=== PATIENT | female | born 1935 | race Two or more races ===

== ENCOUNTER 2018-08-10 04:41 | Emergency (ER) | payer OTHER ==
[~2018-08-10] VITALS: Ht 162.6 cm; Wt 68.0 kg
[~2018-08-10 04:41] MED LIST: AMLO5TAB13; ASPI81CH49; CLON0.1T; LISI-646; OMEPRAZOLE DR 20 MG CAPSULE; PRAV20TA3 PO
[2018-08-10 07:44] LABS: Basophils # (auto) 0.1 uL; Basophils % (auto) 0.7 % (0.0-2.0); Eosinophils # (auto) 0.1 uL; Eosinophils % (auto) 1.4 % (0.0-7.0); Hematocrit 43.9 % (36.0-46.0); Hemoglobin 14.6 g/dL (12.2-16.2); Lymphocytes # (auto) 0.9 uL; Lymphocytes % (auto) 11.8 % (10.0-50.0); Mean Corpuscular Hemoglobin 29.5 pg (28.0-32.0); Mean Corpuscular Hgb Conc. 33.3 g/dL (32.0-36.0); Mean Corpuscular Volume 88.7 fL (80.0-100.0); Monocytes # (auto) 0.6 uL; Monocytes % (auto) 7.5 % (0.0-12.0); Neutrophils # (auto) 5.8 uL; Neutrophils % (auto) 78.6 % (37.0-80.0); Nucleated Red Blood Cells % 0.1 %; Platelet Count (auto) 128 10^3/uL (140-450); Red Blood Cells 4.95 10^6/uL (4.0-5.20); White Blood Cell 7.4 10^3/uL (4.4-10.8)
[2018-08-10] MEDS ORDERED: SODIUM CHLORIDE 0.9% 1,000 ML IV ONE (07:48)
[2018-08-10] MEDS ORDERED: PROMETHAZINE HCL 25 MG/ML 1ML IV PRN (08:00)
[2018-08-10 08:13] LABS: Albumin 3.2 g/dL (3.4-5.0); Calcium 9.3 mg/dL (8.5-10.1); Potassium 3.9 mmol/L (3.5-5.1)
[2018-08-10 08:19] LABS: BUN/Creatinine Ratio 26.1; Bilirubin, Total 0.4 mg/dL (0.2-1.0); Total Protein 7.8 g/dL (6.4-8.2)
[2018-08-10 08:21] LABS: Magnesium 2.4 mg/dL (1.6-2.6)
[2018-08-10 12:27] LABS: Urine Bacteria NONE SEEN /hpf (None Seen); Urine Blood TRACE /uL (Negative); Urine Specific Gravity 1.014 (1.001-1.035); Urine WBC 1 /hpf (0 - 5)
[2018-08-10 13:55] VITALS: BP 185/55
== END 2018-08-10 13:59 | disposition home or self-care (01) ==
LOC: ER 04:41 → EDBD 04:41 → ER 13:59
DX: K29.01 Acute gastritis with bleeding (principal); R00.1 Bradycardia, unspecified; I12.9 Hypertensive chronic kidney disease with stage 1 through stage 4 chronic kidney disease, or unspecified chronic kidney disease; N18.4 Chronic kidney disease, stage 4 (severe); E78.5 Hyperlipidemia, unspecified; I10 Essential (primary) hypertension; E44.1 Mild protein-calorie malnutrition; Z90.710 Acquired absence of both cervix and uterus; Z87.891 Personal history of nicotine dependence; Z68.25 Body mass index [BMI] 25.0-25.9, adult
CPT/HCPCS: 36415; 71046; 80053; 81001; 83690; 83735; 84443; 85025; 93005; 96360; 96361; 99284; J7030

== ENCOUNTER 2020-12-29 21:27 | Emergency (ER) | payer OTHER ==
[~2020-12-29] VITALS: Ht 162.6 cm; Wt 64.9 kg
[~2020-12-29 21:27] MED LIST changes: +AMLO-489; -AMLO5TAB13; -LISI-646; +LISI20TA28
[2020-12-29 22:50] LABS: Basophils # (auto) 0.1 10 ^3/uL (0-0.2); Basophils % (auto) 0.6 % (0.0-2.0); Eosinophils # (auto) 0.1 10 ^3/uL (0-0.8); Eosinophils % (auto) 0.8 % (0.0-7.0); Hematocrit 40.8 % (36.0-46.0); Lymphocytes % (auto) 9.7 % (10.0-50.0); Mean Corpuscular Hemoglobin 30.8 pg (28.0-32.0); Mean Corpuscular Hgb Conc. 34.4 g/dL (32.0-36.0); Mean Corpuscular Volume 89.5 fL (80.0-100.0); Monocytes % (auto) 9.9 % (0.0-12.0); Neutrophils # (auto) 7.8 10 ^3/uL (1.6-8.6); Nucleated Red Blood Cells % 0.1 %; Red Blood Cells 4.56 10^6/uL (4.0-5.20); Red Cell Distribution Width 15.1 % (11.8-14.3); White Blood Cell 9.9 10^3/uL (4.4-10.8)
[2020-12-29 23:04] LABS: INR 1.03 (0.9-1.15)
[2020-12-29 23:06] LABS: Albumin 3.8 g/dL (3.4-5.0); Anion Gap 11 (5-15); BUN/Creatinine Ratio 22.7; Blood Urea Nitrogen 50 mg/dL (7-18); Calcium 8.6 mg/dL (8.5-10.1); Carbon Dioxide 19 mmol/L (21-32); Chloride 104 mmol/L (98-107); GFR African American 27 mL/min; GFR Non-African American 23 mL/min; Glucose 113 mg/dL (74-106); Lipase 175 U/L (73-393); Magnesium 2.2 mg/dL (1.6-2.6); Potassium 4.3 mmol/L (3.5-5.1); Sodium 134 mmol/L (136-145)
[2020-12-29 23:14] LABS: Alanine Aminotransferase 23 U/L (13-56); Alkaline Phosphatase 110 U/L (45-117); Aspartate Aminotransferase 20 U/L (15-37); Bilirubin, Total 0.6 mg/dL (0.2-1.0); Total Protein 7.5 g/dL (6.4-8.2)
[2020-12-30] MEDS ORDERED: SODIUM CHLORIDE 0.9% 500 ML IV ONE (01:45)
[2020-12-30 03:09] LABS: Urine Bacteria FEW /hpf (None Seen); Urine Blood Negative /uL (Negative); Urine Specific Gravity 1.003 (1.001-1.035); Urine WBC 2 /hpf (0 - 5)
[2020-12-30] MEDS ORDERED: ACETAMINOPHEN 500 MG TAB PO ONE (04:15)
[2020-12-30 04:38] LABS: BUN/Creatinine Ratio 22.6; Calcium 8.4 mg/dL (8.5-10.1)
[2020-12-30 05:00] VITALS: BP 149/56
== END 2020-12-30 06:01 | disposition home or self-care (01) ==
LOC: ER 21:27
DX: N39.0 Urinary tract infection, site not specified (principal); N17.9 Acute kidney failure, unspecified; I12.9 Hypertensive chronic kidney disease with stage 1 through stage 4 chronic kidney disease, or unspecified chronic kidney disease; N18.9 Chronic kidney disease, unspecified; K21.9 Gastro-esophageal reflux disease without esophagitis; E78.5 Hyperlipidemia, unspecified; Z90.710 Acquired absence of both cervix and uterus; Z87.891 Personal history of nicotine dependence; Z79.82 Long term (current) use of aspirin; Z79.899 Other long term (current) drug therapy; Z88.0 Allergy status to penicillin
CPT/HCPCS: 36415; 74176; 80048; 80053; 81001; 83605; 83690; 83735; 84484; 85025; 85610; 93005; 96360